=== PATIENT | female | born 1945 | race Caucasian/White ===

== ENCOUNTER 2024-04-10 10:39 | Outpatient (CLI) | payer MEDICARE, OTHER, SELFPAY ==
--- NOTE | ~2024-04-10 | XR_ITS ---
AP view of the pelvis and AP and lateral views of the left hip Clinical history: Trochanteric bursitis Findings: No acute fracture or dislocation is seen. There is mild to moderate degenerative change of both hip joints, right worse than left. Soft tissues are unremarkable. Impression: Mild to moderate degenerative change of both hip joints, right worse than left. Reviewed, dictated and finalized at location . Impression: Mild to moderate degenerative change of both hip joints, right worse than left.
== END 2024-04-10 10:40 ==
PROVIDERS: PCP Orthopaedic Surgery; Visit Provider Orthopaedic Surgery
DX: M16.0 Bilateral primary osteoarthritis of hip (principal); M70.62 Trochanteric bursitis, left hip
CPT/HCPCS: 73502

== ENCOUNTER 2025-02-18 08:02 | Emergency (ER) | payer MEDICARE, SELFPAY ==
[2025-02-18 08:10] VITALS: BP 134/61; PULSE 83; RESP 18; TEMP 36.7; O2SAT 98
--- OUTSIDE RECORDS SUMMARY | 2025-02-18 08:11 | XMS_ITS | Encounter Summary ---
Author Organization [facility] Address [address] [place] [address] Care Team Providers Care Moss Picker Name Role Phone Kolby Palacios MD Unavailable Abraham Olvera MD Unavailable Abraham Olvera MD Primary Care Provider Saul Estevez MD Unavailable Mindy Erwin MA Unavailable [phone] Mindy Erwin MA Unavailable [phone] Encounter Details Date Type Department Care Team (Late st Contact Info) Description 01/18/2021 Lab Requisition [facility] [address] [facility] [place] [id number] Fish Saravia Jr., MD [address] [facility] [address] [place] [address] Social History Tobacco Use Types Packs/Day Years Used Date Smoking Tobacco: Former Cigarettes Q uit: 02/26/2015 Smokeless Tobacco: Never Alcohol Use Standard Drinks/Week Comments Yes 0 (1 standard drink = 0.6 oz pur e alcohol) Occasionally Comments No Sex and Gender Information Value Date Recorded Sex Assigned at Not on file 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 Author Blood Pressure < 140/90 Blood Pressure 120/70( 024 2:54 PM CDT) No Yeni Khan documented as of this encounter Procedures Procedure Name Priority Date/Time Associated Diagnosis Comments DERMATOPATHOLOGY Routine 01/17/2021 12:0 0 AM CDT documented in this encounter Results * DERMATOPATHOLOGY (01/17/2021 12:00 AM CDT) Case Report Dermatopathology Report Case: [id number] Authorizing Provider: Fish Saravia Jr., MD Collected: 01/17/2021 12:00 AM Ordering Location: [facility] Received: 01/18/2021 02:58 PM Pathologist: Nomi Bailey MD Specimen: Skin, right central malar cheek 5:11 PM CDT DERMATOPATHOLOGY LABORATORY Final Diagnosis Specimen A. SKIN, right central malar cheek: BENIGN VERRUCOUS KERATOSIS, INFLAMED (L82.1) 5:11 PM CDT DERMATOPATHOLOGY LABORATORY Clinical History Verruca vulgaris vs irritated seborrheic keratosis. . 5:11 PM CDT DERMATOPATHOLOGY LABORATORY Gross Description Specimen A: Received is one formalin filled container labeled with the patient's name and designated right central malar cheek. The specimen consists of a shave biopsy measuring [id number], bisected. Jar 0. 5:11 PM CDT DERMATOPATHOLOGY LABORATORY Microscopic Description Specimen A. SKIN, right central malar cheek: Sections show hyperkeratosis, papillomatosis, hypergranulosis, and acanthosis. Inflammatory cells are present within the dermis. These histological findings can be seen in a verruca vulgaris or a seborrheic keratosis. 5:11 PM CDT DERMATOPATHOLOGY LABORATORY Disclaimer An external and internal positive and negative controls are appropriate for the histochemical, immunohistochemical and immunofluorescence stain(s) in this case (if any), except where stated explicitly. The performance characteristics of the stain(s) cited in this report were developed and its performance characteristic determined by the Dermatopathology Laboratory at [facility], directed by Dr. Richard Bailey. These tests need not be, and therefore are not, approved by the [place] Food and Drug Administration. The tests are used for clinical purposes. Billing Codes Specimen Charges Stain Charges 69687 1 1 5:11 PM CDT DERMATOPATHOLOGY LABORATORY Embedded Images 5:11 PM CDT DERMATOPATHOLOGY LABORATORY Pathology/Cytolog y TISSUE SPECIMEN FROM SKIN / Unknown 01/17/2021 01/18/2021 2:58 PM CDT us Fish Saravia Jr., MD LAB - PATHOLOGY/CYTOLOG Y ORDERABLES Final Result DERMATOPATHOLOGY LABORATORY [facility] - Department of Dermatology [facility] [address] [place] [address], 3rd [place] [address], [place] [phone] documented in this encounter Visit Diagnoses Not on filedocumented in this encounter Care Teams Moss Picker Relationship Specialty Start Date End Date Abraham Olvera MD [address] [facility] [address] [place] [phone] PCP - Attributed-MSSP 10/29/20 Abraham Olvera MD [address] [facility] [address] [place] [phone] PCP - General Internal Medicine 02/03/21 Kolby Palacios MD [address] [place] [address] Orthopedic Surgery 08/24/20 Saul Estevez MD [address] [facility] [address] [place] [phone] Hand Surgery 12/13/22 Mindy Erwin MA Care Coordination Specialist 01/14/24 01/14/24 Mindy Erwin MA Care Coordination Specialist 07/07/24 07/07/24 documented as of this encounter
--- OUTSIDE RECORDS SUMMARY | 2025-02-18 08:11 | XMS_ITS | Clinical Summary ---
Author Organization [facility] Address [address] [place] [address] Phone Care Team Providers Care Car Sales Associate Name Role Phone Abraham Olvera MD Primary Care Provider Allergies No known active allergies Medications amLODIPine (NORVASC) 10 MG Tablet Take 10 mg by mouth daily. Active naproxen 500 MG Tablet Delayed Response Take by mouth. Activ e albuterol 108 (90 Base) MCG/ACT Aerosol Solution take 2 Puffs by inhalation every 4 hours as needed. Active meloxicam (MOBIC) 15 MG Tablet Take 15 mg by mouth daily. Active tiZANidine (ZANAFLEX) 4 MG Tablet Take 4 mg by mouth every 8 hours as needed. Active atorvastatin (LIPITOR) 20 MG Tablet Take 20 mg by mouth daily. Active cefdinir (OMNICEF) 300 MG Capsule Take 600 mg by mouth daily. Active cetirizine (ZyrTEC) 10 MG Tablet Take 10 mg by mouth daily. Active Active Problems No known active problems Encounters Date Type Department Care Team Description 12/30/2024 1:02 PM [facility] - 12/30/2024 11:59 PM [facility] Hospital Encounter [facility] Mammography [address] [place] [address] Abraham Olvera MD Discharge Disposition: Discharged to home or Selfcare 12/28/2024 Travel from Last 3 Months Family History Medical History Relation Name Comments Breast Cancer Daughter Cancer Father COLORECTAL No Known Problems Mother Relation Name Status Comments Daughter Father Mother Social History Tobacco Use Types Packs/Day Years Used Date Smoking Tobacco: Every Day Cigarettes 0.3 50 Smokeless Tobacco: Never Alcohol Use Standard Drinks/Week Comments Yes 0 (1 standard drink = 0.6 oz pur e alcohol) OCCASIONAL GLASS OF WINE Comments No Sex and Gender Information Value Date Recorded Sex Assigned at Not on file Legal Sex Female 11:24 PM CDT Gender Identity Not on file Sexual Orientation Not on file Last Filed Vital Signs Vital Sign Reading Time Taken Comments Blood Pressure 120/72 08/21/2022 9:11 AM CDT Pulse 66 08/21/2022 9:11 AM CDT Temperature 35.9 C (96.6 F) 08/21/2022 9:11 AM CDT Respiratory Rate 16 08/21/2022 9:11 AM CDT Oxygen Saturation 95% 08/21/2022 9:11 AM CDT Inhaled Oxygen Concentration - - Weight 81.6 kg (180 lb) 08/21/2022 8:23 AM CDT Height 175.3 cm (5' 9 ) 08/21/2022 8:23 AM CDT Body Mass Index 26.58 08/21/2022 8:23 AM CDT Plan of Treatment Health Maintenance Due Date Last Done Comments Hepatitis C Virus (HCV) Screening 1945 Zoster Immunization (2 of 3) 10/16/2014 08/21/2014 SARS-COV-2 Immunization ( season) 2025 07/25/2024, 01/07/2024, 08/11/2023, Additional history exists DEXA Bone Density 12/30/2026 12/30/2024 Pneumococcal Immunization (50+ years) Completed 12/07/2021, 07/28/2015, 08/21/2014, Additional history exists Pneumococcal Immunization Combined Discontinued 12/07/2021, 07/28/2015, 08/21/2014, Additional history exists Colonoscopy High Risk Discontinued 01/24/2022, 022 Colonoscopy Discontinued 01/24/2022, 01/24/2022 Colorectal Cancer Screening Discontinued DTaP/Tdap/Td Immunization Discontinued 02/14/2024, 10/2009 TdaP Immunization Completed 02/14/2024 Influenza Immunization Completed , 08/02/2023, 08/16/2022, Additional history exists Respiratory Syncytial Virus (RSV) Immunization (Adult) Completed 08/27/2024 Mammogram Discontinued 09/30/2024, 05/31, 03/30/2022, Additional history exists Cologuard Discontinued Hepatitis B Immunization Aged Out No longer eligible based on patient's age to complete this topic Immunochemical Fecal Occult Blood Discontinued Meningococcal Immunization (ACWY) Aged Out No longer eligible based on patient's age to complete this topic Rotavirus Immunization Aged Out No lo nger eligible based on patient's age to complete this topic Medical Devices Implanted Type Area Dispensary Clerk Device Identifier Shelf Expiration Date Model / Serial / Lot Adilson Ak[employer] 2 Implanted:Qty: 1 on 07/24/2022 by Terrance Medrano MD at [facility] Right: Eye 07/24/2024 [id number] / [id number] / [id number] Left Intraocular Lens Implanted:Qty: 1 on 08/21/2022 by Terrance Medrano MD at [facility] Left: Eye [facility] 10/12/2024 [id number] / [id number] / [id number] Procedures Procedure Name Priority Date/Time Associated Diagnosis Comments [facility] BONE DENSITOMETRY AXIAL SKELETON Routine 12/30/2024 1:36 PM [facility] Menopause [facility] SCREENING BILATERAL DIGITAL W CAD W RONDA Routine 09/30/2024 4:11 PM [facility] Visit for screening mammogram from Last 3 Months or Most Recently Relevant to Health Maintenance Results * [facility] BONE DENSITOMETRY AXIAL SKELETON (12/30/2024 1:36 PM [facility]) Anatomical Region Laterality Modality BODY N/A Computed Radiogr aphy 12/31/2024 6:11 AM [facility] Impressions 12/31/2024 6:13 AM [facility] IMPRESSION: Low bone mass REFERENCE: Bone mineral density: T-Score: Normal (T-score above or = -1.0) Low bone mass (T-score between -1.0 and -2.5) replaces the previously used term osteopenia Osteoporosis (T-score = or below -2.5) Z-Score: Within the expected range for age (Z-score above -2.0) Below the expected range for age (Z-score is -2.0 or below) Please see below follow up recommendations. Medical evaluation for secondary causes of low bone mineral density may be appropriate. FRAX is a World Health Organization validated fracture risk assessment tool that calculates a person's 10 year probability of a major osteoporosis related fracture and hip fracture. According to the National Osteoporosis Foundation guidelines, postmenopausal women and men age 50 or older with low bone mass and a 10 year probability of a major osteoporosis related fracture = or greater than 20% or a 10 year probability of a hip fracture = or greater than 3% should be considered for pharmacological treatment for the prevention of osteoporosis. For further information, including treatment recommendations, please refer to the 2019 ISCD Official Positions (http://www.iscd.org) and the NOF's Clinician's Guide to Prevention and Treatment of Osteoporosis (http://www.nof.org/professionals/clinical-guidelines) Narrative 12/31/2024 6:13 AM [facility] EXAM DESCRIPTION: [facility] BONE DENSITOMETRY AXIAL SKELETON REASON FOR STUDY: 79 y/o year old F with given history of: Post menopausal status. History of smoking. Patient has taken/is taking multivitamin and hormone replacement therapy Dispensary Clerk/Model: [employer] (S/N [id number]) Facility LSC value of 0.028 for the AP spine and 0.033 for the femur. CLINICAL INFORMATION: Current height: 69.5 inches Maximum height: 70 inches Weight: 180 pounds Risk factors: Smoking COMPARISON: None available FINDINGS: AP LUMBAR SPINE L1-L4: Total BMD is 1.053 g/cm2 T-score is -1.1 LEFT HIP: Total BMD is 0.760 g/cm2 T-score is -2.0 Femoral neck BMD is 0.798 g/cm2 T-score is -1.7 FRAX: 10 year risk for a major osteoporotic fracture is 14.4 %, 10 year risk for a hip fracture is 5.4 % THIS IS AN ELECTRONICALLY VERIFIED FINAL REPORT 12/31/2024 6:11 AM - Electronically signed by Anne Marie Coffey M.D. TW: Report ID: [id number] Reading Location: [id number] Procedure Note Anne Marie Coffey MD - 12/31/2024 EXAM DESCRIPTION: DARIO BONE DENSITOMETRY AXIAL SKELETON REASON FOR STUDY: 79 y/o year old F with given history of: Post menopausal status. History of smoking. Patient has taken/is taking multivitamin and hormone replacement therapy Dispensary Clerk/Model: [employer] (S/N [id number]) Facility LSC value of 0.028 for the AP spine and 0.033 for the femur. CLINICAL INFORMATION: Current height: 69.5 inches Maximum height: 70 inches Weight: 180 pounds Risk factors: Smoking COMPARISON: None available FINDINGS: AP LUMBAR SPINE L1-L4: Total BMD is 1.053 g/cm2 T-score is -1.1 LEFT HIP: Total BMD is 0.760 g/cm2 T-score is -2.0 Femoral neck BMD is 0.798 g/cm2 T-score is -1.7 FRAX: 10 year risk for a major osteoporotic fracture is 14.4 %, 10 year risk for a hip fracture is 5.4 % THIS IS AN ELECTRONICALLY VERIFIED FINAL REPORT 12/31/2024 6:11 AM - Electronically signed by Anne Marie Coffey M.D. TW: TW Report ID: [id number] Reading Location: [id number] IMPRESSION: Low bone mass REFERENCE: Bone mineral density: T-Score: Normal (T-score above or = -1.0) Low bone mass (T-score between -1.0 and -2.5) replaces the previously used term osteopenia Osteoporosis (T-score = or below -2.5) Z-Score: Within the expected range for age (Z-score above -2.0) Below the expected range for age (Z-score is -2.0 or below) Please see below follow up recommendations. Medical evaluation for secondary causes of low bone mineral density may be appropriate. FRAX is a World Health Organization validated fracture risk assessment tool that calculates a person's 10 year probability of a major osteoporosis related fracture and hip fracture. According to the National Osteoporosis Foundation guidelines, postmenopausal women and men age 50 or older with low bone mass and a 10 year probability of a major osteoporosis related fracture = or greater than 20% or a 10 year probability of a hip fracture = or greater than 3% should be considered for pharmacological treatment for the prevention of osteoporosis. For further information, including treatment recommendations, please refer to the 2019 ISCD Official Positions (http://www.iscd.org) and the NOF's Clinician's Guide to Prevention and Treatment of Osteoporosis (http://www.nof.org/professionals/clinical-guidelines) us Abraham Olvera MD IMG DEXA ORDERABLES Final Re sult * [facility] SCREENING BILATERAL DIGITAL W CAD W RONDA (09/30/2024 4:11 PM [facility]) Anatomical Region Laterality Modality breast Bilateral Mammography 09/30/2024 4:12 PM [facility] Narrative 10/01/2024 2:04 PM [facility] - [facility]ARIO SCREENING BILATERAL DIGITAL W CAD W RONDA BILATERAL DIGITAL SCREENING MAMMOGRAM 3D/2D WITH CAD WITH MEDIOLATERAL OBLIQUE CRANIOCAUDAL: 09/30/2024 The study was acquired using digital technology and interpreted from soft copy. Current study was also evaluated with ICAD version 7.2. 2D digital mammographic views, as well as 3D digital tomosynthesis were performed in the CC and MLO projections. CLINICAL: Routine screening. Patient has no complaints. Personal history of colorectal cancer. Daughter with premenopausal breast cancer. COMPARISONS: Comparison is made to exams dated: 03/30/2022, 06/28/2023, and 12/29/2020 [facility]. BREAST TISSUE:The breasts are heterogeneously dense, which may obscure small masses. FINDINGS: There are stable benign scattered calcifications in both breasts. No significant masses, calcifications, or other findings are seen in either breast. There has been no significant interval change. IMPRESSION: BENIGN There is no mammographic evidence of malignancy. A 1 year screening mammogram is recommended. A letter will be sent to the patient with these results. The patient will be entered into a reminder system with a target due date of 1 year for her next screening exam. Electronically signed by: Kelly Jaime M.D. ll/penrad:09/30/2024 22:38:07 Special Weapons Unit Officer(s): RT Benson(R)(M), [facility] letter sent: Normal Exam Reading location: [facility] Mammogram BI-RADS: Category 2: Benign Procedure Note Kelly Jaime MD - 10/01/2024 - DARIO SCREENING BILATERAL DIGITAL W CAD W RONDA BILATERAL DIGITAL SCREENING MAMMOGRAM 3D/2D WITH CAD WITH MEDIOLATERAL OBLIQUE CRANIOCAUDAL: 09/30/2024 The study was acquired using digital technology and interpreted from soft copy. Current study was also evaluated with ICAD version 7.2. 2D digital mammographic views, as well as 3D digital tomosynthesis were performed in the CC and MLO projections. CLINICAL: Routine screening. Patient has no complaints. Personal history of colorectal cancer. Daughter with premenopausal breast cancer. COMPARISONS: Comparison is made to exams dated: 03/30/2022, 06/28/2023, and 12/29/2020 [facility]. BREAST TISSUE:The breasts are heterogeneously dense, which may obscure small masses. FINDINGS: There are stable benign scattered calcifications in both breasts. No significant masses, calcifications, or other findings are seen in either breast. There has been no significant interval change. IMPRESSION: BENIGN There is no mammographic evidence of malignancy. A 1 year screening mammogram is recommended. A letter will be sent to the patient with these results. The patient will be entered into a reminder system with a target due date of 1 year for her next screening exam. Electronically signed by: Kelly Jaime M.D. ll/penrad:09/30/2024 22:38:07 Special Weapons Unit Officer(s): RT Benson(R)(M), [facility] letter sent: Normal Exam Reading location: [facility] Mammogram BI-RADS: Category 2: Benign us Abraham Olvera MD IMG MAMMO ORDERABLES Final R esult from Last 3 Months or Most Recently Relevant to Health Maintenance Insurance [facility] Care Teams Car Sales Associate Relationship Specialty Start Date End Date Abraham Olvera MD [address] [facility] [address] [place] [address] PCP - General Internal Medicine 11/09/15
--- OUTSIDE RECORDS SUMMARY | 2025-02-18 08:11 | XMS_ITS | Clinical Summary ---
Author Organization [facility] Address [address] [place] [address] Care Team Providers Care Pari Mutuel Ticket Seller Name Role Phone Abraham Olvera MD Primary Care Provider [phone] Allergies No known active allergies Medications albuterol HFA (PROVENTIL HFA,VENTOLIN HFA) 90 mcg/actuation inhaler inhale 2 puff by inhalation route 4 - 6 hours as needed 3 5 1 Active ergocalciferol (VITAMIN D2) 50,000 unit capsule take 1 capsule ([id number]) by oral route every week 12 3 2 Active ranitidine (ZANTAC) 150 mg capsule Take 1 capsule (150 mg total) by mouth once as needed for indigestion or heartburn Active tiZANidine (ZANAFLEX) 4 mg tablet TAKE 1 (ONE) TABLET BY MOUTH EVERY 8 HOURS NEEDED FOR MUSCLE SPASMS 1 Active atorvastatin (LIPITOR) 20 mg tablet TAKE 1 TABLET BY MOUTH EVERYDAY AT BEDTIME 1 Active cetirizine (ZyrTEC) 10 mg tablet Take 1 tablet (10 mg total) by mouth daily Active amLODIPine (NORVASC) 10 mg tablet Take 1 tablet (10 mg total) by mouth daily 1 Active coenzyme Q10 200 mg capsule Take 1 capsule (200 mg total) by mouth 2 (two) times a day Active acetaminophen (TYLENOL) 500 mg tablet Take 1 tablet (500 mg total) by mouth 2 (two) times a day [address] (VOLTAREN) 50 mg EC tablet Take 1 tablet (50 mg total) by mouth 2 (two) times a day 2 Active famotidine (PEPCID) 20 mg tablet Take 1 tablet (20 mg total) by mouth nightly 2 Active benzonatate (TESSALON) 100 mg capsuleIndicati ons:Cough Take 1 capsule (100 mg total) by mouth 3 (three) times a day as needed for cough 42 capsule 4 Active Active Problems Problem Noted Date Diagnosed Date High risk for colon cancer 01/12/2025 Encounter for colonoscopy in patient with family history of colon cancer 01/12/2025 Encounter for screening colonoscopy 11/01/2021 Overview (11/01/2021): Added automatically from request for surgery [id number] Hyperlipidemia 06/15/2021 Overview (06/15/2021): Tolerating lipitor. Following diet. Exercise limited. Last Assessment & Plan: Check labs, adjust lipitor as needed HTN (hypertension) 06/15/2021 Overview (06/15/2021): Compliant with medication. BP well controlled. No sheppard/cp/shortness of breath/dizziness Last Assessment & Plan: Continue norvasc Verruca vulgaris 01/21/2021 Overview (06/15/2021): Derm report 12/2020 History of colon cancer 07/30/2018 Overview (07/30/2018): Added automatically from request for surgery [id number] Family hx of colon cancer 07/30/2018 Overview (07/30/2018): Added automatically from request for surgery [id number] Atherosclerosis of aorta 08/07/2017 Overview (06/15/2021): Not noted on most recent imaging: CXR 12/20/2017 US ABD 03/30/17 Last Assessment & Plan: asymptomatic Rhinitis 08/22/2016 Overview (06/15/2021): Hands/feet- fh ra- 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 Last Assessment & Plan: Switch to fluticasone due to formulary. GERD (gastroesophageal reflux disease) 5 Overview (06/15/2021): No dysphagia. Doing well with over the counter omeprazole. Sx recur if misses dose Last Assessment & Plan: Continue omeprazole Hyperlipidemia 03/14/2014 Overview (02/01/2017): HYPERLIPIDEMIA NEC/NOS Asthma 03/14/2014 Overview (02/02/2017): ASTHMA NOS Hypertension 03/14/2014 Overview (02/02/2017): HYPERTENSION NOS Encounters Date Type Department Care Team Description 01/12/2025 Telephone [facility] G[facility]ology at [address] [place] [address] Consuelo Jeff LPN from Last 3 Months Immunizations Immunization Administration Dates Next Due H1N1 All Forms 11/17/2009 Influenza, Split 08/03/2010 Influenza, Trivalent, High D ose, Split, Preservative Free, Intramuscular 08/11/2013,07/29/2011 Influenza, Trivalent, IM (MDV) 07/13/2009 Pneumococcal Polysaccharide PPV23 08/21/2014,02/2012 Td, adsorbed 11/29/2009 ZOSTER LIVE 08/21/2014 Surgical History Surgery Date Site/Laterality Comments TONSILLECTOMY Tonsillectomy APPENDECTOMY Appendectomy TOTAL ABDOMINAL HYSTERECTOMY W/ BILATERAL SALPINGOOPHORECTOMY Hysterectomy, total abdominal, BSO COLONOSCOPY 08/29/2018 - 09/27/2018 Medical History Medical History Date Comments Asthma Asthma Hx Other Medical Headache, migra ine Hyperlipidemia Hyperlipidemia Malignant neoplasm of colon (HCC) Cancer, colon Colon cancer (HCC) 2000 GERD (gastroesophageal reflux disease) Allergic Seasonal allergies Migraines Hypertension Family History Medical History Relation Name Comments Colon cancer Father Colon cancer Maternal Grandmother Rheum arthritis Other Family histo ry of Rheumatoid arthritis; Colon cancer Paternal Grandmother Relation Name Status Comments Father Maternal Grandmother Other Paternal Grandmother Social History Tobacco Use Types Packs/Day Years Used Date Smoking Tobacco: Some Days Cigarettes 0 Smokeless Tobacco: Never Tobacco Cessation:Ready to Q uit: Not Asked; Counseling Given: Not Answered Comments:1-2 cigaretts a day Alcohol Use Standard Drinks/Week Comments Yes 1 (1 standard drink = 0.6 oz pur e alcohol) occasionally AUDIT-C Answer Date Recorded Q1: How often do you have a drink containing alc ohol? 2-3 times a week 01/23/2022 Q2: How many drinks containi ng alcohol do you have on a typical day when you are drinking? 1 or 2 01/23/2022 Q3: How often do you have si x or more drinks on one occasion? 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 Gender Identity Not on file Sexual Orientation Not on file Obstetrics History Last Filed Vital Signs Vital Sign Reading Time Taken Comments Blood Pressure 110/72 03/28/2024 11:03 AM CDT Pulse 78 03/28/2024 11:03 AM CDT Temperature 36.6 C (97.9 F) 03/28/2024 11:03 AM CDT Respiratory Rate 20 03/28/2024 11:03 AM CDT Oxygen Saturation 96% 03/28/2024 11:03 AM CDT Inhaled Oxygen Concentration - - Weight 75.8 kg (167 lb) 03/28/2024 11:03 AM CDT Height 172.7 cm (5' 8 ) 03/28/2024 11:03 AM CDT Body Mass Index 25.39 03/28/2024 11:03 AM CDT Plan of Treatment Upcoming Encounters Date Type Department Care Team (Late st Contact Info) Description 04/02/2025 7:30 AM CDT Hospital Encounter [address] [address] Barrett Larios, DO [address] [facility] [place] [address] 04/02/2025 7:30 AM CDT - 04/02/2025 8:00 AM CDT Surgery [address] [address] Barrett Larios, [address] [facility] [address] [place] [address] COLONOSCOPY Scheduled Procedures Name Priority Associated Diagnoses Date/Ti me COLONOSCOPY High risk for colon cancer Encounter for colonoscopy in patient with family history of colon cancer 04/02/2025 7:30 AM CDT Health Maintenance Due Date Last Done Comments Depression Screening 1945 Hepatitis C Screening 1945 Osteoporosis Screening-Bone Density Scan 1945 Hepatitis B Screening 1965 Well Visit 65+ 2012 Zoster Vaccine (2 of 3) 10/16/2014 08/21/2014 Fall Risk Assessment 01/24/2023 01/24/2022 Covid-19 Vaccine (5 - 2023-2 5 season) 2024 02/17/2022, 09/09/2021, 01/15/2021, Additional history exists Influenza Vaccine (Season Ended) 2025 08/02/2023, 08/16/2022, 07/20/2021, Additional history exists DTaP/Tdap/Td Vaccine (2 - Td or Tdap) 02/13/2034 02/14/2024, 11/29/2009 Pneumococcal vaccine 65+ Completed 022, 07/28/2015, 08/21/2014, Additional history exists Colon Cancer Screening-CT Colonography Discontinued 01/24/2022, 09/12/2018, 06/06/2013, Additional history exists Colon Cancer Screening-Colonoscopy Discontinued 01/24/2022, 09/12/2018, 06/06/2013, Additional history exists Colon Cancer Screening-DNA Stool Discontinued 01/24/2022, 09/12/2018, 06/06/2013, Additional history exists Colon Cancer Screening-FIT Discontinued 01/24, 09/12/2018, 06/06/2013, Additional history exists Colon Cancer Screening-FOBT Discontinued 12/28, 09/12/2018, 06/06/2013, Additional history exists Colon Cancer Screening-Sigmoidoscopy Discontinued 01/24/2022, 09/12/2018, 06/06/2013, Additional history exists Colorectal Cancer Screening Discontinued Breast Cancer Screening-Mammogram Discontinued 06/28/2023, 06/28/2023, 03/30/2022, Additional history exists Procedures Procedure Name Priority Date/Time Associated Diagnosis Comments COLONOSCOPY 01/24/2022 7:03 AM CDT from Last 3 Months or Most Recently Relevant to Health Maintenance Results * COLONOSCOPY (01/24/2022 7:03 AM CDT) Anatomical Region Laterality Modality Other Narrative Procedure Note Andre Russo MD - 01/24/2022 7:03 AM CDT [facility] Patient Name: Bibi Davenport Procedure Date: 01/24/2022 7:03 AM Date of : 1945 Admit Type: Outpatient Age: 76 Gender: Female Attending MD: Andre Russo M.D. Room: [facility] ENDOSCOPY ROOM 2 Note Status: Finalized Patient Profile: Refer to note in patient chart for documentation of history and physical. Procedure: Colonoscopy Indications: High risk colon cancer surveillance: Personalhistory of colon cancer, Last colonoscopy: August 2018 Referring MD: Abraham Olvera M.D. Providers: Andre Russo M.D. Impression: - Patent anastomosis, characterized by healthy appearing mucosa. - Diverticulosis in the sigmoid colon. - One 3 mm polyp in the sigmoid colon, removed witha cold snare. Resected and retrieved. No specimens collected. - The examination was otherwise normal. Recommendation: - Discharge patient to home. - Resume previous diet. - Continue present medications. - Repeat colonoscopy in 3 years for surveillance. - Return to primary care physician as previously scheduled. Medicines: Propofol per Anesthesia Complications: No immediate complications. Estimated Blood Loss: Estimated blood loss: none. Procedure: Pre-Anesthesia Assessment: - This assessment was completed [Time ofAssessment] prior to the administration of sedation. The benefits, risks and alternatives of theprocedure and sedation were discussed and informed consentwas obtained. All questions were answered. Please referto the signed informed consent document in the medical record. The bowel preparation used was Miralax and bisacodyl tablets via single dose instruction. The scope was passed under direct vision. TheColonoscope [id number] was introduced through the anus and advanced to the the cecum, identified by appendiceal orifice and ileocecal valve. The colonoscopy was performed without difficulty. The patient tolerated the procedure well. The qualityof the bowel preparation was good. The ileocecalvalve, appendiceal orifice, and rectum werephotographed. Findings: The perianal and digital rectal examinations were normal. There was evidence of a prior [Type]transanal resection with RT intracavitary anastomosis in the rectum. [Status] and [Description]. [Traversed]. Multiple small and large-mouthed diverticula were found in thesigmoid colon. A 3 mm polyp was found in the sigmoid colon. The polyp was sessile.The polyp was removed with a cold snare. Resection and retrieval were complete. No biopsies or other specimens were collected for thisexam. The exam was otherwise without abnormality. Electronically signed by Andre Russo M.D. Andre Russo M.D. 01/24/2022 8:24:06 AM Number of Addenda: 0 Note Initiated On: 01/24/2022 7:03 AM Procedure Code(s): --- Professional --- 40946, Colonoscopy, flexible; with removal of tumor(s), polyp(s), or other lesion(s) by snare technique Diagnosis Code(s): --- Professional --- K57.30, Diverticulosis of large intestine without perforation orabscess without bleeding D12.5, Benign neoplasm of sigmoid colon Z98.0, Intestinal bypass and anastomosis status Z85.038, Personal history of other malignant neoplasm of largeintestine CPT copyright 2020 [employer]. All rights reserved. The codes documented in this report are preliminary and upon information technology auditor reviewmay be revised to meet current compliance requirements. Recognized by the [employer] for promoting quality in endoscopy Andre Russo MD ENDOSCOPY PROCEDURES Final Re sult from Last 3 Months or Most Recently Relevant to Health Maintenance Insurance [employer] Advance Directives For more information, please contact: [phone] * Full Code (Latest Code Status on File) Date Activated Date Inactivated Comments 01/24/2022 7:13 AM 01/24/2022 1:14 PM * Full Code Date Activated Date Inactivated Comments 01/24/2022 7:13 AM 01/24/2022 7:13 AM * Full Code Date Activated Date Inactivated Comments 09/12/2018 7:21 AM 09/12/2018 11:22 AM * Full Code Date Activated Date Inactivated Comments 09/12/2018 7:21 AM 09/12/2018 7:21 AM Care Teams Pari Mutuel Ticket Seller Relationship Specialty Start Date End Date Abraham Olvera MD PCP - General 03/21/07
--- OUTSIDE RECORDS SUMMARY | 2025-02-18 08:11 | XMS_ITS | Encounter Summary ---
Author Organization [facility] Address [address] [place] [address] Care Team Providers Care Public Space Attendant Name Role Phone Abraham Olvera MD Unavailable Kolby Palacios MD Unavailable Abraham Olvera MD Unavailable Abraham Olvera MD Primary Care Provider [phone] Saul Estevez MD Unavailable Mindy Erwin MA Unavailable [phone] Mindy Erwin MA Unavailable [phone] Encounter Details Date Type Department Care Team (Late st Contact Info) Description 12/21/[address] 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 [address] [place] [address] Abraham Olvera MD [address] [place] [address] [address] [place] [address] documented as of this encounter Goals Goal Patient Goal Type Associated Problems Recent Progress Patient-Stated? Author Blood Pressure < 140/90 Blood Pressure 120/70( 024 2:54 PM CDT) No Yeni Khan documented as of this encounter Visit Diagnoses Not on filedocumented in this encounter Care Teams Public Space Attendant Relationship Specialty Start Date End Date Abraham Olvera MD [address] [place] [address] [address] [place] [address] PCP - Attributed-MSSP 05/06/17 02/01/20 Abraham Olvera MD [address] [place] [phone] PCP - Attributed-MSSP 10/29/20 Abraham Olvera MD [address] [place] [address] [address] [place] [address] PCP - General Internal Medicine 02/03/21 Kobly Palacios MD [address] [facility] [address] [place] [address] Orthopedic Surgery 08/24/20 Saul Estevez MD [address] [place] [address] Hand Surgery 12/13/22 Mindy Erwin MA Care Coordination Specialist 01/14/24 01/14/24 Mindy Erwin MA Care Coordination Specialist 07/07/24 07/07/24 documented as of this encounter
--- OUTSIDE RECORDS SUMMARY | 2025-02-18 08:11 | XMS_ITS | Clinical Summary ---
Author Organization [facility] Address [address] [place] [address] Care Team Providers Care Press Assistant And Feeder Name Role Phone Kolby Palacios MD Unavailable Abraham Olvera MD Unavailable [phone] Abraham Olvera MD Primary Care Provider Saul Estevez MD Unavailable Source Comments [facility],non-owned Affiliates and Associated Physician Practices is amultiple site organization consisting of ambulatory clinics and hospital sitesin [place] and [place]. This disclosure is being madepursuant to the Care Everywhere program and may not contain all information available regarding this patient. Last updated 18.[facility] Ritani Allergies No known active allergies Medications * Be aware that medications may not be up to date on this document. Alwaysverify current medications with the patient. cetirizine (ZyrTEC) 10 MG tablet Take 1 (one) tablet by mouth once daily Active famotidine (PEPCID) 20 MG tablet Take 1 (one) tablet by mouth at bedtime 90 tablet 4 12/07/19 22 Active ubiquinine/vitamin -e (Coenzyme Q10) 200 MG capsule Take 200 mg by mouth 2 times daily Active acetaminophen (Tylenol) 500 MG tablet Take 1 (one) tablet by mouth 2 times daily Maximum allowable Acetaminophen amount = 4 Grams (4000 mg) / 24 hours. 06/07/20 22 Active Glucosamine-Chondr oitin (GLUCOSAMINE CHONDR COMPLEX PO) Take 1 tablet by mouth 2 times daily Active amLODIPine (Norvasc) 10 MG tabletIndications: Hypertension Take 1 (one) tablet by mouth once daily Reasons: High Blood Pressure Disorder 90 tablet 3 07/08/20 24 Active albuterol HFA (Proventil; Ventolin; Proair) 108 (90 Base) MCG/ACT inhalerIndications :Allergic rhinitis due to pollen, unspecified seasonality Inhale 2 (two) puffs by mouth every 4 hours as needed for Wheezing 18 g 5 08/18/20 24 Active tiZANidine (Zanaflex) 4 MG tabletIndications: Arthritis Take 1 (one) tablet by mouth every 8 hours as needed for Muscle Spasms 30 tablet 5 08/18/20 24 Active diclofenac sodium EC (Voltaren) 50 MG tabletIndications: Polyarthralgia Take 1 (one) tablet by mouth 2 times daily 180 tablet 2 08/26/20 24 Active atorvastatin (Lipitor) 20 MG tabletIndications: Hyperlipidemia, unspecified hyperlipidemia type Take 1 (one) tablet by mouth once daily 90 tablet 3 11/14/19 25 Active Active Problems Problem Noted Date Diagnosed Date Osteopenia of multiple sites 01/01/2025 Overview (01/01/2025): DEXA 12/2024 Smoker 07/09/2023 Overview (08/18/2024): Cutting back Declined ldct Assessment & Plan (08/18/2024 3:03 PM CDT): Continue smoking cessation Assessment & Plan (01/07/2024 1:09 PM CDT): Recommend ldct COVID-19 06/12/2023 Primary osteoarthritis of both knees 09/27/2022 Overview (09/27/2022): Per xray report. Colon polyp 01/24/2022 Overview (01/24/2022): Colonoscopy 12/2021 Verruca vulgaris 01/21/2021 Overview (01/21/2021): Derm report 12/2020 Family hx of colon cancer 07/30/2018 Overview (06/07/2022): Family hx of colon cancer Family hx of colon cancer [id number] Active 2018-07-30 00:00:00 Overview: Added automatically from request for surgery [id number] Atherosclerosis of aorta 08/07/2017 Overview (04/08/2018): Not noted on most recent imaging: CXR 12/20/2017 US ABD 03/30/17 Assessment & Plan (01/07/2024 1:02 PM CDT): asymptomatic Assessment & Plan (12/07/2021 10:16 AM SU[employer]): asymptomatic Assessment & Plan (12/20/2020 11:19 AM SUPER[employer]): asymptomatic Assessment & Plan (08/24/2020 9:27 AM CDT): asymptomatic Assessment & Plan (07/09/2018 10:21 AM CDT): asymptomatic Arthritis 08/22/2016 Overview (01/07/2024): Hips more symptomatic recently- injections helping Hands/feet- fh ra- worsening 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 Assessment & Plan (02/17/2020 9:34 AM CDT): Refer to hand ortho Assessment & Plan (08/15/2019 9:46 AM CDT): Check esr/crp- consider rheumatology eval Assessment & Plan (07/09/2018 10:24 AM CDT): Continue current medication. Try tumeric Assessment & Plan (08/13/2017 10:19 AM CDT): Check labs, consider rheumatology eval- possible sero negative ra Assessment & Plan (08/22/2016 10:40 AM CDT): Check labs GERD (gastroesophageal reflux disease) 5 Overview (01/07/2024): No dysphagia. Doing well with over the counter pepcid. Sx recur if misses dose Assessment & Plan (08/18/2024 2:59 PM CDT): Continue pepcid Assessment & Plan (01/07/2024 1:01 PM CDT): Continue pepcid Assessment & Plan (12/13/2022 10:46 AM SU[employer]): Continue pepcid Assessment & Plan (06/07/2022 10:21 AM CDT): Continue pepcid Assessment & Plan (06/08/2021 10:02 AM CDT): Continue omeprazole Assessment & Plan (12/20/2020 11:18 AM SU[employer]): Continue current medication. Assessment & Plan (08/24/2020 9:27 AM CDT): Continue current medication. Assessment & Plan (02/17/2020 9:34 AM CDT): Continue current medication. Assessment & Plan (08/15/2019 9:43 AM CDT): Continue current medication. Assessment & Plan (07/09/2018 10:20 AM CDT): Continue current medication. Assessment & Plan (08/13/2017 10:24 AM CDT): Try qod Assessment & Plan (08/22/2016 10:42 AM CDT): Continue current medication. Assessment & Plan (02/15/2016 9:51 AM CDT): Continue current medication. Assessment & Plan (11/18/2014 10:11 AM SU[employer]): Continue current med/dose. Hyperlipidemia Overview (12/13/2022): Didn't tolerate increased lipitor. Following diet. Exercise limited. Assessment & Plan (08/18/2024 2:59 PM CDT): Labs at next visit Assessment & Plan (01/07/2024 1:00 PM CDT): Check lipid/liver Assessment & Plan (12/13/2022 10:52 AM SUPER[employer]): Check lipid/liver, lower lipitor to 10 mg Assessment & Plan (06/07/2022 10:22 AM CDT): Labs pending Assessment & Plan (12/07/2021 10:14 AM SUPER[employer]): Check lipid/liver Assessment & Plan (06/08/2021 10:03 AM CDT): Check labs, adjust lipitor as needed Assessment & Plan (12/20/2020 11:19 AM SUPER[employer]): Check labs and adjust medication accordingly. Assessment & Plan (08/24/2020 9:29 AM CDT): Continue current medication. Add CoQ10 Assessment & Plan (02/17/2020 9:32 AM CDT): Check labs and adjust medication accordingly. Assessment & Plan (08/15/2019 9:44 AM CDT): Check labs and adjust medication accordingly. Assessment & Plan (11/05/2018 1:21 PM [employer]): Check labs and adjust medication accordingly. Assessment & Plan (07/09/2018 10:21 AM CDT): Check labs and adjust medication accordingly. Assessment & Plan (08/13/2017 10:19 AM CDT): Check labs and adjust medication accordingly. Assessment & Plan (08/22/2016 10:40 AM CDT): Check labs and adjust medication accordingly. Assessment & Plan (02/15/2016 9:52 AM CDT): Check labs and adjust medication accordingly. Assessment & Plan (11/18/2014 10:10 AM SUPER[employer]): Labs pending. Adjust as needed. Assessment & Plan (05/26/2014 10:30 AM CDT): Check labs and adjust medication accordingly. Assessment & Plan (11/25/2013 1:22 PM SUPER[employer]): Start atorvastatin. Rhinitis Overview (11/25/2013): Usually controlled. Assessment & Plan (11/25/2013 1:32 PM SUPER[employer]): Switch to fluticasone due to formulary. HTN (hypertension) Overview (01/07/2024): Compliant with medication. BP well controlled. No sheppard/cp/shortness of breath/dizziness- losing weight with diet/exercise Assessment & Plan (08/18/2024 2:59 PM CDT): Continue current medication Assessment & Plan (01/07/2024 1:00 PM CDT): Continue norvasc Assessment & Plan (12/13/2022 10:45 AM SUPERVIS[employer]): Continue norvasc Assessment & Plan (06/07/2022 10:18 AM CDT): Continue norvasc Assessment & Plan (12/07/2021 10:14 AM SUPERVISOR [employer]): Continue norvasc Assessment & Plan (06/08/2021 10:02 AM CDT): Continue norvasc Assessment & Plan (12/20/2020 11:18 AM SUPER[employer]): Continue current medication. Assessment & Plan (08/24/2020 9:25 AM CDT): Continue current medication. Assessment & Plan (02/17/2020 9:32 AM CDT): Continue current medication. Assessment & Plan (08/15/2019 9:43 AM CDT): Continue current medication. Assessment & Plan (11/05/2018 1:21 PM SUPER[employer]): Continue current medication. Assessment & Plan (07/09/2018 10:20 AM CDT): Continue current medication. Assessment & Plan (08/13/2017 10:19 AM CDT): Continue current medication. Assessment & Plan (08/22/2016 10:40 AM CDT): Continue current medication. Assessment & Plan (02/15/2016 9:51 AM CDT): Continue current medication. Assessment & Plan (09/17/2015 3:01 PM SU[employer]): Continue current medication. Assessment & Plan (11/18/2014 10:10 AM SUPERVISOR [employer]): Continue current med/dose. Assessment & Plan (05/26/2014 10:30 AM CDT): Continue current med/dose. Encounters Date Type Department Care Team Description 12/31/2024 Orders Only [facility] - Internal Medicine [address] [place], [place] [id number] Abraham Olvera MD Menopause from Last 3 Months Immunizations Immunization Administration Dates Next Due COVID PFIZER 12+YR 30MCG/0.3mL 07/25/2024,2023 Covid Pfizer primary Monoval ent 12+ yr 0.3ml 08/05/2022 Covid Pfizer primary monoval ent 12+ yr 0.3mL Purple cap 02/17/2022,09/09/2021,01/15/2021,2020 INFLUENZA VACCINE 08/02/2023,,07/20/2021,2019,07/26/2017,08/20/2016,07/29/2015,0 07/24/2014,07/29/2013 INFLUENZA VACCINE, ADJUVANTE D, QUADR. (FLUAD QUADRIVALENT; 65Y+) (AIIV4) 08/15/2022 INFLUENZA VACCINE, HIGH-DOSE , QUADR. (FLUZONE HIGH-DOSE QUADRIVALENT; 65Y+), 0.7 ML (HD-IIV4) 07/25/2024,08/01/2019,07/23/2018 INFLUENZA VACCINE, HIGH-DOSE , TRIV. (FLUZONE HIGH-DOSE TRIVALENT; 65Y+) (HD-IIV3) 08/01/2019,07/23/2018 PNEUMOCOCCAL PPSV23 12/07/2021,08/21/2014,2011 Pneumococcal Pcv13 Conj 07/28/2015 RSV ABRYSVO PREG OR 60y+ 0.5mL 08/27/2024 TD (AGE 7-ADULT) 11/29/2009 TD VACCINE 11/29/2009 TDAP (7yrs+) 02/14/2024 ZOSTER VACCINE, LIVE 08/21/2014 Family History Medical History Relation Name Comments Cancer Daughter breast Cancer - Colon Father Arthritis - Rheumatoid Mother Dementia Mother Relation Name Status Comments Daughter Father Mother Sister Alive Social History Tobacco Use Types Packs/Day Years Used Date Smoking Tobacco: Every Day Cigarettes 0.5 50.5 Started: 1979 Smokeless Tobacco: Never Alcohol Use Standard Drinks/Week Comments Yes 8 (1 standard drink = 0.6 oz pure alcohol) very small amt red wine nightly as of 07/09/23. PHQ-2 Answer Date Recorded Patient Health Questionnaire-2 Score 0 02/16/2025 Comments No Sex and Gender Information Value Date Recorded Sex Assigned at Not on file Legal Sex Female 10:18 AM SUPER[employer] Gender Identity Not on file Sexual Orientation Not on file Last Filed Vital Signs Vital Sign Reading Time Taken Comments Blood Pressure 120/70 08/18/2024 2:54 PM CDT Pulse 75 08/18/2024 2:54 PM CDT Temperature 36.3 C (97.3 F) 08/18/2024 2:54 PM CDT Respiratory Rate - - Oxygen Saturation 98% 08/18/2024 2:15 PM CDT Inhaled Oxygen Concentration - - Weight 74.5 kg (164 lb 3.2 oz) 08/18/2024 2:54 P M CDT Height 172.7 cm (5' 8 ) 08/18/2024 2:54 PM CDT Body Mass Index 24.97 08/18/2024 2:54 PM CDT Plan of Treatment Upcoming Encounters Date Type Department Care Team (Late st Contact Info) Description 02/23/2025 3:00 PM CDT Office Visit [facility] - Internal Medicine [address] [facility] Miche[place] [address] [place] [id number] Abraham Olvera MD [address] [place] [address] [address] [place] [address] Health Maintenance Due Date Last Done Comments ZOSTER VACCINE (2 of 3) 10/16/2014 08/21/2014 DEPRESSION SCREENING 10/29/2024 01/07/2024, 12/13/2022, 12/07/2021 COVID-19 VACCINE ( season) 2025 07/25/2024, 01/07/2024, 08/11/2023, Additional history exists LUNG CANCER SCREENING 08/18/2025 Postpo erasmo from 1997 (Patient Refused) MEDICARE AWV 12 MONTHS 08/18/2025 08/18/2024, 08/18/2024, 07/09/2023, Additional history exists DTAP/TDAP/TD VACCINES (4 - Td or Tdap) 02/13/2034 02/14/2024, 11/29/2009, 11/29/2009 HEPATITIS C SCREENING Completed 12/20/2017, 016 PNEUMOCOCCAL VACCINE 50+ Completed 022, 07/28/2015, 08/21/2014, Additional history exists INFLUENZA VACCINE Completed 07/25/2024, , 08/16/2022, Additional history exists Respiratory Syncytial Virus (RSV) Vaccine Pt: or over 60 yrs Completed 08/27/2024 BONE DENSITY TESTING Completed 12/30/2024, 07/15/2012, 07/15/2012 (Previously completed) HEPATITIS B VACCINE Aged Out No longe r eligible based on patient's age to complete this topic HIB VACCINE Aged Out No longer eligi ble based on patient's age to complete this topic HPV VACCINE Aged Out No longer eligi ble based on patient's age to complete this topic MENINGOCOCCAL (Group B) VACCINE SHARED DECISION-MAKING Aged Out No longer eligible based on patient's age to complete this topic MENINGOCOCCAL GROUPS A/C/Y/W VACCINE Aged Out No longer eligible based on patient's age to complete this topic Goals Goal Patient Goal Type Associated Problems Recent Progress Patient-Stated? Author Blood Pressure < 140/90 Blood Pressure 120/70( 024 2:54 PM CDT) Yeni Franco Procedures Procedure Name Priority Date/Time Associated Diagnosis Comments DEXA BONE DENSITY AXIAL SKELETON Routine 12/30/2024 Menopause HEPATITIS PANEL Routine 12/20/2017 10:54 AM [employer] Polyarthralgia Inflammatory arthritis Family history of rheumatoid arthritis Osteoarthritis of multiple joints, unspecified osteoarthritis type Malaise and fatigue from Last 3 Months or Most Recently Relevant to Health Maintenance Results * Dexa Bone Density Axial Skeleton (12/30/2024) Anatomical Region Laterality Modality Other 12/30/2024 us Abraham Olvera MD DEXA ORDERABLES Final Result * HEPATITIS PANEL (12/20/2017 10:54 AM SUPER[employer]) Hepatitis A Virus Antibody IgM Negative Negative [facility] INSURANCE BILL Hepatitis A Virus Antibody Total Negative Negative [facility] INSURANCE BILL Hepatitis B Virus Surface Antigen Negative Negative [facility] INSURANCE BILL Hepatitis Be Antigen Negative Negative [facility] INSURANCE BILL Hepatitis B Core Virus Antibody IgM Negative Negative [facility] INSURANCE BILL Hepatitis B Core Virus Antibody Total Negative Negative [facility] INSURANCE BILL Hepatitis Be Antibody Negative Negative [facility] INSURANCE BILL Hepatitis B Virus Surface Antibody Non Reactive [facility] INSURANCE BILL Comment: Non Reactive: Inconsistent with immunity, less than 10 mIU/mL Reactive: Consistent with immunity, greater than 9.9 mIU/mL Blood BLOOD SPECIMEN / Unknown 12/20/2017 10:54 AM SU[employer] 12/20/2017 Narrative Resulting Agency Comment [facility] [address] [facility] [phone] us Adama Milan MD LAB - CHEMISTRY ORDERABLES Final Result [facility] INSURANCE BILL [address] [place] [address] from Last 3 Months or Most Recently Relevant to Health Maintenance Insurance MEDICARE [facility] MEDICARE MEDICARE SUPPLEMENT PA[employer]OR GENERIC Care Teams Press Assistant And Feeder Relationship Specialty Start Date End Date Abraham Olvera MD [address] [facility] [address] [place] [address] PCP - Attributed-MSSP 10/29/20 Abraham Olvera MD [address] [facility] [address] [place] [address] PCP - General Internal Medicine 02/03/21 Kolby Palacios MD [address] [place] [address] Orthopedic Surgery 08/24/20 Saul Estevez MD [address] [facility] [address] [place] [address] Hand Surgery 12/13/22
--- OUTSIDE RECORDS SUMMARY | 2025-02-18 08:11 | XMS_ITS | Referral Summary ---
Author Organization [facility] Address [address] [place] [address] Care Team Providers Care Neon Installer Name Role Phone Abraham Olvera MD Primary Care Provider Encounters Date Type Department Care Team Description 01/12/2025 Telephone [facility] [place] [address] [facility] [address] [place] [address] Consuelo Jeff LPN from Last 3 Months Allergies No known active allergies Medications albuterol HFA (PROVENTIL HFA,VENTOLIN HFA) 90 mcg/actuation inhaler inhale 2 puff by inhalation route 4 - 6 hours as needed 3 5 1 Active ergocalciferol (VITAMIN D2) 50,000 unit capsule take 1 capsule ([id number]) by oral route every week 12 3 [...] (11/01/2021): Added automatically from request for surgery [id number] Hyperlipidemia 06/15/2021 Overview (06/15/2021): Tolerating lipitor. Following diet. Exercise limited. Last Assessment & Plan: Check labs, adjust lipitor as needed HTN (hypertension) 06/15/2021 Overview (06/15/2021): Compliant with medication. BP well controlled. No sheppard/cp/shortness of breath/dizziness Last Assessment & Plan: Continue norvasc Verruca vulgaris 01/21/2021 Overview (06/15/2021): Derm report 12/2020 History of colon cancer 07/30/2018 Overview (07/30/2018): Added automatically from request for surgery [id number] Family hx of colon cancer 07/30/2018 Overview (07/30/2018): Added automatically from request for surgery [id number] Atherosclerosis of aorta 08/07/2017 Overview (06/15/2021): Not [...] NOS Hypertension 03/14/2014 Overview (02/02/2017): HYPERTENSION NOS Immunizations Immunization Administration Dates Next Due H1N1 All Forms 11/17/2009 Influenza, Split 08/03/2010 Influenza, Trivalent, High D ose, Split, Preservative Free, Intramuscular 08/11/2013,07/29/2011 Influenza, Trivalent, IM (MDV) 07/13/2009 Pneumococcal Polysaccharide PPV23 08/21/2014,02/2012 Td, adsorbed 11/29/2009 ZOSTER LIVE 08/21/2014 Social History Tobacco Use Types Packs/Day Years [...] on file 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 Gender Identity Not on file Sexual Orientation [...] Description 04/02/2025 7:30 AM CDT Hospital Encounter [address] [address] Barrett Larios, [address] [place] [address] [place] [address] 04/02/2025 7:30 AM CDT - 04/02/2025 8:00 AM CDT Surgery [address] [place] [address] Barrett Larios DO [address] [place] [address] COLONOSCOPY Scheduled Procedures Name Priority Associated Diagnoses Date/Ti me COLONOSCOPY High risk for colon cancer Encounter for colonoscopy in patient with family history of colon cancer 04/02/2025 7:30 AM CDT Procedures Procedure Name Priority Date/Time Associated Diagnosis Comments COLONOSCOPY 01/24/2022 7:03 AM CDT from Last 3 Months or Most Recently Relevant to Health Maintenance Results * COLONOSCOPY (01/24/2022 7:03 AM CDT) Anatomical Region Laterality Modality Other Narrative Procedure Note Andre Russo MD - 01/24/2022 7:03 AM CDT [facility] Patient Name: Bibi Davenport Procedure Date: 01/24/2022 7:03 AM Date of : 1945 Admit Type: Outpatient Age: 76 Gender: Female Attending MD: Andre Russo M.D. Room: [facility] ENDOSCOPY ROOM 2 Note Status: Finalized [...] scope was passed under direct vision. TheColonoscope [id number] was introduced through the anus and advanced [...] 7:03 AM Procedure Code(s): --- Professional --- 98164, Colonoscopy, flexible; with removal of tumor(s), polyp(s), or other lesion(s) by snare technique Diagnosis Code(s): --- Professional --- K57.30, Diverticulosis of large intestine without perforation orabscess without bleeding D12.5, Benign neoplasm of sigmoid colon Z98.0, Intestinal bypass and anastomosis status Z85.038, Personal history of other malignant neoplasm of largeintestine CPT copyright 2020 [employer]. All rights reserved. The codes documented in this report are preliminary and upon him coder reviewmay be revised to meet current compliance requirements. Recognized by the [employer] for promoting quality in endoscopy Andre Russo MD ENDOSCOPY PROCEDURES Final Re sult from Last 3 Months or Most Recently Relevant to Health Maintenance Insurance MEDICARE [facility] MEDICARE [employer] Advance Directives For more information, please contact: [phone] * Full Code (Latest Code Status on File) Date Activated Date Inactivated Comments 01/24/2022 7:13 AM 01/24/2022 1:14 PM * Full Code Date Activated Date Inactivated Comments 01/24/2022 7:13 AM 01/24/2022 7:13 AM * Full Code Date Activated Date Inactivated Comments 09/12/2018 7:21 AM 09/12/2018 11:22 AM * Full Code Date Activated Date Inactivated Comments 09/12/2018 7:21 AM 09/12/2018 7:21 AM Care Teams Neon Installer Relationship Specialty Start Date End Date Abraham Olvera MD PCP - General 03/21/07
--- NOTE | 2025-02-18 08:15 | ED.URI ---
HPI - URI/Sore Throat General Chief Complaint: Upper Respiratory Infection Stated Complaint: Cough/Sneezing Time Seen by Provider: 02/18/25 08:15 Source: patient and RN notes reviewed Mode of arrival: ambulatory Limitations: no limitations History of Present Illness HPI Narrative: 79 y/o female presented for c/o nasal congestion and drainage, sneezing and coughing. Onset 10 days. Endorses over the past few days she has had more pressure and pain in the face. Endorses difficulty sleeping due to the coughing and sneezing. Denies shortness of breath, wheezing nausea, vomiting, fevers or chills. She is taking Claritin and Benadryl. MD elicited complaint: cough Related Data Home Medications ?Medication ?Instructions ?Recorded ?Confirmed ?Last Taken ?Type amlodipine 5 mg tablet 5 mg PO DAILY 06/21/20 02/18/25 Unknown History atorvastatin 20 mg tablet 20 mg PO DAILY 06/21/20 02/18/25 Unknown History tizanidine 4 mg capsule 4 mg PO TID PRN 06/21/20 04/25/24 Unknown History diclofenac sodium 100 mg 100 mg PO BID 03/16/23 02/18/25 Unknown History tablet,extended release 24 hr albuterol sulfate 90 mcg/actuation inhalation 02/18/25 Unknown History aerosol inhaler Allergies Allergy/AdvReac Type Severity Reaction Status Date / Time No Known Allergies Allergy Unknown Verified 02/18/25 08:15 [facility] Past Medical History Medical History Arthritis of right hip Colorectal cancer Trochanteric bursitis, right hip Surgical History Surgical History History of hysterectomy History of tonsillectomy and adenoidectomy Social History Social History Smoking status: Current every day smoker Tobacco type: cigarettes Alcohol intake: current Do You Feel Safe in your Home?: Yes Lack of Transportation: No Lack of Food: Never True Current Housing: I Have Housing Concerned About Future Housing: No Difficulty Paying Gas/Electric Bills: No Difficulty Paying for Meds: No Currently Unemployed: No Education: High School Diploma/GED Difficulty w/ Childcare or Family Care: No Exam Narrative: GENERAL: well-appearing EYES: conjunctivae clear ENT: Mucous membranes moist. left TM pearly jennings with dull light reflex; Right TM unable to visualize due to excess cerumen no tragal tenderness. occasional hoarse voice. no drooling, no trismus, uvula midline. No tripod positioning, muffled voice, soft palate or pharyngeal wall bulging NECK: Supple. No lymphadenopathy CHEST: Clear to auscultation, breath sounds equal. No wheezing, rhonchi, rales, or stridor. No respiratory distress, speaks in full sentences. HEART: Regular rate and rhythm. No murmur heard. SKIN: Warm, dry, no rash. NEURO: Alert and oriented x3. PSYCH: Normal mood and affect Course Course Emergency Course: Patient is aware of diagnosis, understands and agrees to treatment plan. Anticipatory guidance given. Patient agrees to follow-up as directed and is aware of reasons to seek care at the emergency department. Portions of this record may have been created with voice recognition software Level of Care: Express Care Visit Vital Signs Vital signs: Vital Signs Temperature 98.1 F 02/18/25 08:10 Pulse Rate 83 02/18/25 08:10 Respiratory Rate 18 02/18/25 08:10 Blood Pressure 134/61 02/18/25 08:10 Pulse Oximetry 98 02/18/25 08:10 Oxygen Delivery Room Air 02/18/25 08:10 Temperature 98.1 F 02/18/25 08:10 Pulse Rate 83 02/18/25 08:10 Respiratory Rate 18 02/18/25 08:10 Blood Pressure 134/61 02/18/25 08:10 Pulse Oximetry 98 02/18/25 08:10 Oxygen Delivery Room Air 02/18/25 08:10 reviewed MDM - URI/Sore Throat MDM Narrative Medical decision making narrative: Discussed physical exam findings Consistent with sinusitis. Reviewed prescriptions. Patient is scheduled with her PCP in 5 days.. Advised supportive measures and signs/symptoms to go to the ER. Pt is appropriate for outpt treatment and f/u. Differential Diagnosis Differential diagnosis: Likely upper respiratory infection, sinusitis and viral infection Discharge Plan Discharge Clinical Impression: Sinusitis Patient Disposition: Home Condition: Stable Instructions: Antibiotic Form, Sinusitis (ED) Additional Instructions: Take antibiotic as directed Recommendations: Flonase spray and Zyrtec (or Claritin/Zoila) over the counter Cough syrup may cause drowsiness; avoid driving or take it at night time. Tylenol 1000mg every 8 hours as needed for pain Rest, fluids, and increase humidity of the air at home. Follow up with your primary care provider As scheduled next week Go to the ER for worsening symptoms or concerns. Patient Language: Kyrgyz Prescriptions: New benzonatate 200 mg capsule 200 mg PO TID PRN (Reason: cough) Qty: 20 0RF amoxicillin-pot clavulanate 875-125 mg tablet 1 tablet PO Q12H 7 Days Qty: 14 0RF prednisone 20 mg tablet 40 mg PO DAILY 4 Days Qty: 8 0RF No Action albuterol sulfate 90 mcg/actuation HFA aerosol inhaler INHALATION diclofenac sodium 100 mg tablet extended release 24 hr 100 mg PO BID atorvastatin 20 mg tablet 20 mg PO DAILY tizanidine 4 mg capsule 4 mg PO TID PRN amlodipine 5 mg tablet 5 mg PO DAILY Follow-up/Referrals: PHYSICIAN NOT ON STAFF,NONSTAFF [Primary Care Provider] -
== END 2025-02-18 08:30 | disposition home or self-care (01) ==
PROVIDERS: Emergency Provider Nurse Practitioner Family
DX: J32.9 Chronic sinusitis, unspecified (principal); F17.210 Nicotine dependence, cigarettes, uncomplicated; M16.11 Unilateral primary osteoarthritis, right hip
CPT/HCPCS: 99213; G0463